=== PATIENT | female | born 1960 | race Caucasian/White ===

== ENCOUNTER 2019-01-09 16:00 | Observation (INO) | payer OTHER ==
[~2019-01-09] VITALS: Ht 175.3 cm; Wt 79.2 kg
--- NOTE | 2019-01-09 16:23 | PHYS DOC ---
Past History Past Medical History: Diabetes, High Cholesterol, Hypothyroid, Pneumonia, Stroke, Other Additional Past Medical Histor: goiter, neuropathy, orthostatic hypotension (JOSE NAZARIO DO) Past Surgical History: Other Additional Past Surgical Histo: left breast, left foot, right knee (ARAVIND,JOSE DO) Alcohol Use: None Drug Use: None (JOSE NAZARIO DO) Adult General Chief Complaint Chief Complaint: RIB PAIN [facility] HPI Patient is a 58-year-old female presents with chest pain in the lower chest that she reports has been present for the past year and a half. It has been worse over the past 5 days. She gets no relief with her current pain medicines to include Cymbalta. There is a respirophasic component. There has been no nausea or vomiting. No worsening with exertion. No recent travel. No fever or cough. She was seen at [facility] 2 days ago for hip pain. Given Toradol at that time. She reports it gave her a migraine yesterday.[] (JOSE NAZARIO DO) Review of Systems Review of Systems Constitutional: Denies fever or chills [] Eyes: Denies change in visual acuity, redness, or eye pain [] HENT: Denies nasal congestion or sore throat [] Respiratory: Denies cough or shortness of breath [] Cardiovascular: No additional information not addressed in HPI [] GI: Denies abdominal pain, nausea, vomiting, bloody stools or diarrhea [] : Denies dysuria or hematuria [] Musculoskeletal: Denies back pain or joint pain [] Integument: Denies rash or skin lesions [] Neurologic: Denies headache, focal weakness or sensory changes [] Endocrine: Denies polyuria or polydipsia [] All other systems were reviewed and found to be within normal limits, except as documented in this note. (JOSE NAZARIO DO) Physical Exam Physical Exam Constitutional: Well developed, well nourished, no acute distress, non-toxic appearance. [] HENT: Normocephalic, atraumatic, bilateral external ears normal, oropharynx moist, no oral exudates, nose normal. [] Eyes: PERRLA, EOMI, conjunctiva normal, no discharge. [] Neck: Normal range of motion, no tenderness, supple, no stridor. [] Cardiovascular:Heart rate regular rhythm, no murmur [] Lungs & Thorax: Bilateral breath sounds clear to auscultation, tenderness in the lower chest bilaterally. No crepitus, no flail segments. [] Abdomen: Bowel sounds normal, soft, no tenderness, no masses, no pulsatile masses. [] Skin: Warm, dry, no erythema, no rash. [] Back: No tenderness, no CVA tenderness. [] Extremities: No tenderness, no cyanosis, no clubbing, ROM intact, no edema. [] Neurologic: Alert and oriented X 3, normal motor function, normal sensory function, no focal deficits noted. [] Psychologic: Affect normal, judgement normal, mood normal. [] (JOSE NAZARIO DO) EKG EKG EKG shows a sinus rhythm at 84 bpm, left axis, QTC of 490 ms, no ST elevation. Interpreted by me at 1628.[] (JOSE NAZARIO DO) Radiology/Procedures Radiology/Procedures PROCEDURE: PORTABLE CHEST 1V Single AP view of the chest. Comparison: None. Indication: Chest pain Findings: The heart is enlarged. There is no pneumothorax or effusion. No air space or interstitial disease. Impression: 1. No acute cardiopulmonary process. 2. Cardiomegaly. [] (JOSE NAZARIO DO) Course & Med Decision Making Course & Med Decision Making Pertinent Labs and Imaging studies reviewed. (See chart for details) ED course: Patient arrived, was placed in bed, and tolerated exam well. She received ketorolac for her discomfort. After the determination of an elevated d- dimer, a VQ scan was ordered due to patient's reported allergy to IV contrast. That study is pending at the time of this dictation along with electrolytes. Patient care was endorsed to the nighttime physician at 1800. Medical decision making: There is no evidence of this being an acute coronary syndrome given the length of time of the symptoms and negative troponin. No evidence of dissecting thoracic aneurysm on chest x-ray. No evidence of esophageal rupture by history. No evidence of pneumothorax by imaging.[] (JOSE NAZARIO DO) Course & Med Decision Making The patient's pain has returned. We are still waiting on her VQ scan. They've given her 1 mg of Dilaudid IV. She has multiple allergies. I discussed options with the patient and she feels like being admitted might be best. She is nervous about going home and having her pain returned and the uncontrolled. I will admit her to the hospital. I spoke with Dr. De La Paz and he has agreed to admit the patient. (DARRIUS YOUNG DO) Dragon Disclaimer Dragon Disclaimer This electronic medical record was generated, in whole or in part, using a voice recognition dictation system. (JOSE NAZARIO DO) Departure Departure: Impression: Primary Impression: Chest pain Disposition: ADMITTED INPATIENT Admitting Physician: Asher De La Paz (DARRIUS YOUNG DO) Condition: STABLE Referrals: LARA GEORGE MD (PCP) JOSE NAZARIO DO Jan 09, 2019 16:23 DARRIUS YOUNG DO Jan 09, 2019 19:54
[2019-01-09] MEDS ORDERED: KETOROLAC 30 MG/ML VIAL. IVP ONE (16:30)
--- NOTE | 2019-01-09 16:47 | RAD ---
Single AP view of the chest. Comparison: None. Indication: Chest pain Findings: The heart is enlarged. There is no pneumothorax or effusion. No air space or interstitial disease. Impression: 1. No acute cardiopulmonary process. 2. Cardiomegaly. Electronically signed by: Phil Bartlett MD (01/09/2019 4:45 PM) [facility]
[2019-01-09 17:05] LABS: AMPHETAMINE/METHAMPHETAMINE NEG (NEG); BARBITURATES NEG (NEG); BENZODIAZEPINES NEG (NEG); CANNABINOIDS NEG (NEG); COCAINE NEG (NEG); METHADONE NEG (NEG); OPIATES NEG (NEG); PHENCYCLIDINE NEG (NEG)
[2019-01-09 17:10] LABS: CLARITY,URINE CLEAR; COLOR,URINE YELLOW
[2019-01-09 17:11] LABS: BACTERIA,URINE 0 /HPF (0-FEW); BILIRUBIN,URINE NEG (NEG); GLUCOSE,URINE >=1000 mg/dL (NEG); NITRITE,URINE NEG (NEG); SQUAMOUS EPITHELIAL CELL,UR MOD /LPF; UROBILINOGEN,URINE 0.2 mg/dL (0.2 mg/dL)
[2019-01-09 17:20] LABS: BASO % 0 % (0-3); EOS # 0.3 x10^3/uL (0.0-0.7); EOS % 4 % (0-3); HEMATOCRIT 33.2 % (36.0-47.0); HEMOGLOBIN 10.8 g/dL (12.0-15.5); LYMPH # 2.1 x10^3/uL (1.0-4.8); LYMPH % 28 % (24-48); MEAN CORPUSCULAR HEMOGLOBIN 27 pg (25-35); MEAN CORPUSCULAR HGB CONC 33 g/dL (31-37); MEAN CORPUSCULAR VOLUME 84 fL (79-100); MONO # 0.3 x10^3/uL (0.0-1.1); MONO % 5 % (0-9); NEUT # 4.7 x10^3uL (1.8-7.7); NEUT % 64 % (31-73); PLATELET COUNT 362 x10^3/uL (140-400); RED BLOOD COUNT 3.97 x10^6/uL (3.50-5.40); WHITE BLOOD COUNT 7.4 x10^3/uL (4.0-11.0)
[2019-01-09 17:43] LABS: ALBUMIN 3.1 g/dL (3.4-5.0); ALBUMIN/GLOBULIN RATIO 0.8 (1.0-1.7); CALCIUM 8.9 mg/dL (8.5-10.1); CREATININE 0.8 mg/dL (0.6-1.0); GFR 74.2; POTASSIUM 4.4 mmol/L (3.5-5.1); TOTAL BILIRUBIN 0.2 mg/dL (0.2-1.0); TOTAL PROTEIN 6.8 g/dL (6.4-8.2)
[2019-01-09] MEDS ORDERED: IV NORMAL SALINE 1,000ML 1,000 ML IV ONE (19:00)
[2019-01-09] MEDS ORDERED: HYDROmorphone PF 1 MG/ML DISP.SYRIN IV ONE (19:45)
[2019-01-09] MEDS ORDERED: NITROGLYCERIN SUBLINGUAL 0.4 MG BOTTLE OF 25. SL PRN (20:00)
[2019-01-09] MEDS ORDERED: ONDANSETRON PF 4 MG/2 ML VIAL. IV PRN (20:00)
[2019-01-09] MEDS ORDERED: ACETAMINOPHEN 325 MG TABLET PO PRN (20:00)
[2019-01-09 20:46] VITALS: BP 160/98
--- NOTE | 2019-01-09 21:09 | RAD ---
Study: NUCLEAR MEDICINE VENTILATION/PERFUSION SCAN History: Elevated d-dimer. Respirophasic lower chest pain. Comparison: None. Technique: Ventilation portion of the exam performed utilizing 8 mCi xenon-133 gas. Perfusion portion performed after intravenous administration of 5 mCi Technetium 99m MAA. Anterior and posterior planar perfusion and ventilation images were obtained. Findings: Ventilation images: Symmetric and confluence uptake of radiotracer during inspiration throughout both lungs. Progressive dissipation of radiotracer activity from equilibrium through washout without findings of air trapping.. Perfusion images: No perfusion defect. Confluent radiotracer throughout.. IMPRESSION: No mismatched defect to indicate pulmonary embolism. Low probability - essentially normal study. Electronically signed by: ERENDIRA HARRINGTON MD (01/09/2019 9:06 PM) [facility]
[2019-01-09] MEDS ORDERED: DICL100G28 TP (21:18)
[2019-01-09] MEDS ORDERED: INSU100I32 SQ (21:18)
[2019-01-09] MEDS ORDERED: INSU100I17 SQ (21:18)
[2019-01-09] MEDS ORDERED: AMIT50TA PO (21:18)
[2019-01-09] MEDS ORDERED: FLUD0.1T PO (21:18)
[2019-01-09] MEDS ORDERED: LOVA10TA PO (21:18)
[2019-01-09] MEDS ORDERED: MIDO10TA PO (21:18)
[2019-01-09] MEDS ORDERED: GABA300C8 PO (21:18)
[2019-01-09] MEDS ORDERED: LEVO100T5 PO (21:18)
[2019-01-09] MEDS ORDERED: DICLOFENAC SODIUM 1% TOPICAL GEL 100GM TUBE. TP PRN (21:45)
[2019-01-09] MEDS: GABAPENTIN 300 MG CAPSULE. PO SCH (22:42)
[2019-01-09] MEDS: AMITRIPTYLINE HCL 50 MG TABLET PO SCH (22:42)
[2019-01-09] MEDS: LEVOTHYROXINE 100 MCG TABLET PO SCH (22:42)
[2019-01-09 23:00] VITALS: BP 133/87
[2019-01-10] MEDS: HYDROmorphone PF 1 MG/ML DISP.SYRIN IV PRN ×4 (00:40→23:17)
[2019-01-10 06:05] VITALS: BP 94/59
[2019-01-10] MEDS: FLUDROCORTISONE 0.1 MG TABLET PO SCH (08:44)
[2019-01-10] MEDS: NOVOLOG SQ SCH ×3 (08:45→17:00)
[2019-01-10] MEDS: [UNRECOGNIZED DRUG - OTHER] SQ SCH (08:46)
[2019-01-10] MEDS: INSULIN GLARGINE SQ SCH (08:46)
[2019-01-10] MEDS ORDERED: INSULIN GLARGINE SYRINGE. SQ SCH (09:00)
[2019-01-10 10:51] VITALS: BP 96/64
--- NOTE | 2019-01-10 15:41 | HP ---
ADMIT DATE: 01/09/2019 HISTORY OF PRESENT ILLNESS: The patient is a 58-year-old female patient who came to the Emergency Room complaining of chest pain. She describes it in the lower chest on both sides as if it is a belt tightening and the pain radiates around both sides to her back, not associated with any nausea, no vomiting, no diaphoresis, no shortness of breath. The pain is constant. According to her, she had this pain for almost 6-12 months; however, it has been constant since last Sunday. She apparently was evaluated the [facility] 2 days ago for hip pain. Given Toradol at that time and she reported her migraine headache. In any case, she was evaluated in the Emergency Room and her EKG showed that she was in sinus rhythm at 84 beats per minute, left axis deviation, no ST segment elevation. Her chest x-ray showed the heart is enlarged; however, there is no pneumothorax or effusion. No airspace interstitial disease and was admitted for further evaluation and treatment. PAST MEDICAL HISTORY: Significant for type 2 diabetes, hyperlipidemia, cerebrovascular accident, fatty liver, hypothyroidism. She has also had an abscess in her right thigh and left breast. PAST SURGICAL HISTORY: Significant for thyroidectomy and drainage of an abscess on the right thigh, right knee and left breast. ALLERGIES: She is allergic to INFLUENZA VIRUS VACCINE, IODINATED CONTRAST MEDIA. AMOXICILLIN, ASPIRIN, CODEINE, DULOXETINE, IBUPROFEN, MORPHINE, PREGABALIN and RASPBERRY. MEDICATIONS: She is currently on following medications: She is on midodrine 20 mg 3 times a day, lovastatin 10 mg at bedtime, diclofenac sodium 1 gram applied twice a day. She is on gabapentin 600 mg at bedtime, amitriptyline 50 mg at bedtime, fludrocortisone 100 mcg once a day. She is on NovoLog insulin 5-10 units before meals and Lantus insulin 30 units at bedtime. She is on levothyroxine sodium 100 mcg at bedtime. FAMILY HISTORY: She has 2 sisters younger and healthy. Her father at age of 53 because of myocardial infarction. Mother is alive at age of 82 and has non-Hodgkin lymphoma. SOCIAL HISTORY: She is , has a stepdaughter. She never smoked, never drank alcohol. She is a [id number] mom. 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 REVIEW OF SYSTEMS: As per history of present illness. PHYSICAL EXAMINATION GENERAL: When I examined her, she looked well and was clearly in no apparent respiratory distress, pale, but no jaundice, cyanosis, or thyromegaly. No extension limb edema. VITAL SIGNS: Her heart rate was 86, blood pressure 157/102, temperature was 97.9, respiratory rate was 16, and oxygen saturation was 99% on room air. HEAD, EYES, EARS, NOSE AND THROAT: Showed normocephalic, atraumatic. NECK: Supple. HEART: Showed normal first and second heart sounds. No gallop, rub or murmur. CHEST: Clear to auscultation. No crepitation or rhonchi. ABDOMEN: Distended, soft, nontender. No guarding or rigidity. No organomegaly. All hernial orifice intact. Bowel sounds normal. NEUROLOGIC: She was awake, alert, responding appropriately. All cranial nerves intact. EXTREMITIES: She moves extremities without difficulty. She ambulates with a walker. LABORATORY DATA: On admission showed a serum sodium 140, potassium 4.4, chloride 100, bicarbonate 31, anion gap of 9, BUN 19, creatinine 0.8, estimated GFR was 74 and glucose was 199, calcium was 8.9. Total bilirubin, AST, ALT, alkaline phosphatase were normal. Total protein was 6.8, albumin was 3.1. Her TSH was extremely high at 91.486. Her first set of cardiac enzymes showed troponin to be less than 0.017. Her prothrombin time was 10.6, INR of 1, aPTT was 30. D-dimer was 1.88. Her urinalysis showed the urine was yellow, clear with a pH of 7, specific gravity 1.025. There is large amount of protein, a large amount of glucose. The urine was negative for ketones, small amount of blood, negative for nitrite and leukocyte esterase, 3-5 rbc's, 1-4 wbc's. Her toxic screen was essentially negative. ASSESSMENT AND PLAN: The patient was admitted to do 2 more sets of cardiac enzymes, although her chest pain is fairly atypical and is inconsistent with coronary artery disease. She did have a V/Q scan, which showed no perfusion defect and no mismatch defect to indicate pulmonary embolism, low probability for essentially a normal study. We will do 2 more sets of cardiac enzyme. We will consult the cardiology team. She stated that she has had CT scans and MRIs, but I do not see any one done at least in this facility. So in general this is a 58-year-old female patient with diabetes with multiple complications including diabetic peripheral neuropathy, probably also severe autonomic neuropathy with chronic hypertension for which she is on midodrine and fludrocortisone. She also has severe hypothyroidism with TSH that is extremely high and I am not sure whether she is re-taking her medication. She has also normochromic normocytic anemia. AMA LOWE MD DR: NANDA/mary JOB#: [id number] / [id number]
[2019-01-10 15:42] VITALS: BP 138/86
[2019-01-10 19:58] VITALS: BP 145/85
[2019-01-10] MEDS: GABAPENTIN 300 MG CAPSULE. PO SCH (21:23)
[2019-01-10] MEDS: AMITRIPTYLINE HCL 50 MG TABLET PO SCH (21:23)
[2019-01-10] MEDS: LEVOTHYROXINE 100 MCG TABLET PO SCH (21:23)
[2019-01-10 22:30] VITALS: BP 136/86
[2019-01-11] MEDS: HYDROmorphone PF 1 MG/ML DISP.SYRIN IV PRN ×5 (02:14→21:17)
[2019-01-11 02:16] VITALS: BP 130/80
[2019-01-11 05:27] VITALS: BP 104/68
[2019-01-11 07:45] LABS: BASO % 0 % (0-3); EOS # 0.3 x10^3/uL (0.0-0.7); EOS % 4 % (0-3); HEMATOCRIT 27.8 % (36.0-47.0); HEMOGLOBIN 9.1 g/dL (12.0-15.5); LYMPH % 30 % (24-48); MEAN CORPUSCULAR HEMOGLOBIN 27 pg (25-35); MEAN CORPUSCULAR HGB CONC 33 g/dL (31-37); MEAN CORPUSCULAR VOLUME 84 fL (79-100); MONO # 0.4 x10^3/uL (0.0-1.1); MONO % 5 % (0-9); NEUT # 4.1 x10^3uL (1.8-7.7); NEUT % 61 % (31-73); PLATELET COUNT 265 x10^3/uL (140-400); RED BLOOD COUNT 3.31 x10^6/uL (3.50-5.40); RED CELL DISTRIBUTION WIDTH 14.1 % (11.5-14.5); WHITE BLOOD COUNT 6.8 x10^3/uL (4.0-11.0)
[2019-01-11 07:59] LABS: ALBUMIN 2.3 g/dL (3.4-5.0); ALBUMIN/GLOBULIN RATIO 0.6 (1.0-1.7); CALCIUM 7.9 mg/dL (8.5-10.1); CREATININE 1.1 mg/dL (0.6-1.0); GFR 51.4; POTASSIUM 4.3 mmol/L (3.5-5.1); TOTAL BILIRUBIN 0.2 mg/dL (0.2-1.0); TOTAL PROTEIN 5.9 g/dL (6.4-8.2)
[2019-01-11] MEDS: FLUDROCORTISONE 0.1 MG TABLET PO SCH (09:52)
[2019-01-11] MEDS: NOVOLOG SQ SCH ×3 (09:52→16:48)
[2019-01-11] MEDS: [UNRECOGNIZED DRUG - OTHER] SQ SCH (09:53)
[2019-01-11] MEDS: INSULIN GLARGINE SQ SCH (09:53)
[2019-01-11 10:32] VITALS: BP 98/65
[2019-01-11] MEDS: IV 1/2 NORMAL SALINE 1,000 ML IV SCH (15:09)
--- NOTE | 2019-01-11 15:40 | PDOC ---
PROVIDER NOTE PROVIDER NOTE PROVIDER NOTE Reason for consultation: Epigastric pain Consultations physician:Dr. De La Paz History of present illness: Pleasant 58-year-old woman well-known to our service comes into the hospital in the setting of some epigastric discomfort and more abdominal pain rather than any cardiac pain. She has some pain with deep inspiration. Denies any specific chest pain with exertion. She has known multiple recurrent syncopal events likely related to autonomic dysfunction and was planned for a possible loop recorder insertion in the near future to rule out definitively any cardiac source of her arrhythmias. She reports that Naprosyn has given her some relief with her discomfort and currently feels little bit sleepy due to the Dilaudid given to her. She denies any dyspnea. No other acute issues at this time Past medical history: Includes diabetic neuropathy, dyslipidemia, dysphagia, long-term type 1 diabetes Gissel history of syncope and collapse Remote history of CVA Family history notable for diabetes Social history notable in that she has never smoked. Does not consume excessive alcohol. Denies any illicit drug use Allergies to multiple medications as noted in the chart Current cardiac medications include Midodrine, florinef. Review systems is negative unless otherwise mentioned above Physical examination The patient appeared well nourished and normally developed. Head exam is unremarkable. No scleral icterus or corneal arcus noted. Neck is without jugular venous distension, thyromegaly, or carotid bruits. Carotid upstrokes are brisk bilaterally. Lungs are clear to auscultation and percussion. Cardiac exam reveals the PMI to be normally sized and situated. Rhythm is regular. First and second heart sounds normal. No murmurs, rubs or gallops. Abdominal exam reveals normal bowel sounds, no masses, no organomegaly and no aortic enlargement. Extremities are nonedematous and both femoral and pedal pulses are normal. Msk: No traumua Neuro: No focal deficits Labs reviewed and no obvious abnormalities noted EKG is unremarkable Previous echocardiogram has been unremarkable Impression: 1. Musko skeletal chest pain 2. Previous history of syncope with plans for possible loop recorder placement o n an outpatient basis Recommendations: 1. At this present time no further cardiovascular testing necessary. Supportive care. Okay to discharge from a cardiac standpoint. ED DELCID MD Jan 11, 2019 15:40
[2019-01-11 16:13] VITALS: BP 131/81
[2019-01-11 19:57] VITALS: BP 106/76
[2019-01-11] MEDS: LEVOTHYROXINE 100 MCG TABLET PO SCH (21:16)
[2019-01-11] MEDS: AMITRIPTYLINE HCL 50 MG TABLET PO SCH (21:16)
[2019-01-11] MEDS: GABAPENTIN 300 MG CAPSULE. PO SCH (21:16)
[2019-01-12] MEDS: IV 1/2 NORMAL SALINE 1,000 ML IV SCH ×2 (02:34→11:00)
[2019-01-12 05:32] VITALS: BP 129/82
[2019-01-12 07:04] LABS: CALCIUM 8.3 mg/dL (8.5-10.1); CREATININE 0.9 mg/dL (0.6-1.0); GFR 64.8; POTASSIUM 4.4 mmol/L (3.5-5.1)
[2019-01-12] MEDS: FLUDROCORTISONE 0.1 MG TABLET PO SCH (08:16)
[2019-01-12] MEDS: INSULIN GLARGINE SQ SCH (08:19)
[2019-01-12] MEDS: [UNRECOGNIZED DRUG - OTHER] SQ SCH (08:19)
[2019-01-12] MEDS: NOVOLOG SQ SCH ×2 (08:23→12:18)
[2019-01-12] MEDS ORDERED: LEVO200T5 PO (12:42)
--- NOTE | 2019-01-12 13:39 | PN ---
DATE: SUBJECTIVE: The patient is resting slightly propped up in bed, in no apparent distress. She continued to complain of band like symptom and described it she has belt tightened around her mid epigastric area. However, she had 3 sets of cardiac enzymes that were negative. She did have a chest x-ray as well as her pulmonary ventilation perfusion scan was negative; however, for some reason, her creatinine has jumped from 0.8 to 1.1. She was also found to have extremely hypothyroid with a TSH of ____, although patient claims that she is taking her medication as prescribed and away from food. She is taking it actually at midnight to make sure that she ____ at least it is what is stated, however, the fact is the TSH is extremely high. PHYSICAL EXAMINATION: GENERAL: When I examined her this afternoon, she looked well and was clearly in no apparent respiratory distress, pale, but no jaundice, cyanosis, or thyromegaly. ____ edema. VITAL SIGNS: Her heart rate was 89, blood pressure was 98/65, temperature was 98.1, respiratory rate was 12, and oxygen saturation was 90% on room air. The rest of clinical examination is stable. Her intake over the last 24 hours was 1880. No output was recorded. LABORATORY DATA: Her lab work this morning showed her serum sodium is 138, potassium 4.3, chloride 102, bicarbonate 31, anion gap of 5, BUN 28, and creatinine 1.1. Her glucose was 195 and calcium was 7.9. Total bilirubin, AST, ALT, and alkaline phosphatase were normal. Total protein is 5.9 and albumin is 2.3. ASSESSMENT: 1. Chest pain, atypical, acute myocardial infarction is ruled out. 2. Type 2 diabetes mellitus, poorly controlled. 3. Hyperlipidemia. 4. Autonomic neuropathy. 5. Severe hypothyroidism. 6. She also has fatty liver and abscess in her right thigh and left breast that was incised and drained before. PLAN: My plan is to start her on IV fluid. We will check also her lab work tomorrow including T3, T4, and free T4 and hopefully discharge her home once her creatinine is back to baseline. AMA LOWE MD DR: NANDA/mary JOB#: [id number] / [id number]
[2019-01-12 23:07] LABS: T3 TOTAL <20 ng/dL (71-180)
--- NOTE | 2019-01-13 01:15 | DS ---
DATE OF DISCHARGE: 01/12/2019 HOSPITAL COURSE: The patient is a 58-year-old female patient, who was admitted with atypical chest pain. She had 3 sets of cardiac enzymes that ruled out myocardial infarction. She also developed acute kidney injury. Her creatinine has risen from 0.8 to 1.1, started on IV fluid and her creatinine is down, back to baseline and during the course of investigation, she was found also to have markedly elevated TSH and her free T4 was extremely low, confirming that she is extremely hypothyroid despite the fact that she is on 100 mcg of levothyroxine, and therefore, obviously she takes medication at bedtime 2 hours after her last meal as she was unable to take them early in the morning fasting as she goes to become hypoglycemic. The only other explantation is that she is not on adequate levothyroxine and I will discharge her probably to double the dose to 200 mcg and advised her to follow with her exchange specialist. PHYSICAL EXAMINATION: GENERAL: When I examined her this afternoon, she looked well and was clearly in no apparent respiratory distress, pale, no jaundice, cyanosis or thyromegaly. No jugular venous distention. No lower limb edema. VITAL SIGNS: Her heart rate was 69, blood pressure was 129/82, temperature was 98, respiratory rate was 18 and oxygen saturation was 93%. HEAD, EYES, EARS, NOSE AND THROAT: Showed normocephalic, atraumatic. NECK: Supple. HEART: Showed normal first and second heart sounds. No gallop or murmur. CHEST: Clear to auscultation. No crepitation or rhonchi. ABDOMEN: Distended, soft, nontender. No guarding or rigidity. No organomegaly. All hernial orifice intact. Bowel sounds normal. NEUROLOGIC: She is awake, alert, responding appropriately. All cranial nerves intact. She moves extremities without difficulty. Her intake over the last 24 hours was 1818, output was recorded. LABORATORY DATA: This morning showed a serum sodium 138, potassium 4.4, chloride 102, bicarbonate 32, anion gap of 4, BUN 32, creatinine was 0.9, estimated GFR was 64 mL per minute. Her glucose was 202, calcium was 8.3. Her free T4 was 0.33 ng/dL with normal range of 0.67-1.46. Her TSH is 91.486, normal range 0.358-3.740. DISCHARGE MEDICATIONS: She will be discharged home to continue on amitriptyline 50 mg at bedtime, diclofenac sodium 100 grams apply 1 gram topically twice a day, fludrocortisone acetate 100 mcg once a day, gabapentin 600 mg at bedtime. She is on NovoLog insulin 5-10 units subcutaneously before meals and Lantus insulin 30 units at bedtime, levothyroxine sodium 100 mcg once a day, lovastatin 10 mg at bedtime, and midodrine 20 mg 3 times a day. FINAL DISCHARGE DIAGNOSES: 1. Atypical chest pain, acute myocardial infarction was ruled out. 2. Type 2 diabetes mellitus, severe autonomic neuropathy requiring midodrine and fludrocortisone. 3. Profound hypothyroidism for which she is now on 100 mcg. She probably needs to double the dose to 200 mcg. Other medical problems include hyperlipidemia and diabetic peripheral neuropathy. AMA LOWE MD DR: NANDA/mary JOB#: [id number] / [id number]
--- NOTE | 2019-01-14 07:54 | EKG ---
[address] [address] Test Date: 2019-01-09 Test Time: 16:27:35 Pat Name: SAM SCHULTZ Department: Room: Gender: F [employer]: SATISH : 1960 Requested By: JOSE NAZARIO Order Number: [id number] Reading MD: Measurements Intervals [place] Rate: 84 P: 0 AR: 164 QRS: -28 QRSD: 88 T: 17 QT: 412 QTc: 490 Interpretive Statements SINUS RHYTHM LEFTWARD AXIS LOW LIMB LEAD VOLTAGE QRS(T) CONTOUR ABNORMALITY CONSISTENT WITH ANTEROSEPTAL INFARCT AGE UNDETERMINED CONSISTENT WITH INFERIOR INFARCT PROBABLY OLD ABNORMAL ECG RI6.01 No previous ECG available for comparison
== END 2019-01-12 13:39 | disposition home or self-care (01) ==
LOC: ER 16:00 → 1 SOUTH 19:50 → INTOOBSV 19:50 → ER 20:00
PROVIDERS: ADMIT Internal Medicine; ATTEND Internal Medicine
DX: R07.89 Other chest pain (principal); I25.10 Atherosclerotic heart disease of native coronary artery without angina pectoris; E11.43 Type 2 diabetes mellitus with diabetic autonomic (poly)neuropathy; D64.9 Anemia, unspecified; E78.5 Hyperlipidemia, unspecified; E03.9 Hypothyroidism, unspecified; K76.0 Fatty (change of) liver, not elsewhere classified; Z86.73 Personal history of transient ischemic attack (TIA), and cerebral infarction without residual deficits; Z98.890 Other specified postprocedural states; Z79.4 Long term (current) use of insulin
CPT/HCPCS: 36415; 71045; 78582; 80048; 80053; 80307; 81001; 82947; 83690; 83735; 84436; 84439; 84443; 84480; 84484; 85025; 85379; 85610; 85730; 93005; 96374; 96375; 96376; 97116; 97162; 99284; A9540; A9558; G0378; J1170; J1885; J7030; 96360; G0379; 99285-25

== ENCOUNTER 2019-01-21 14:14 | Emergency (ER) | payer OTHER ==
[~2019-01-21] VITALS: Ht 175.3 cm; Wt 78.9 kg
[~2019-01-21 14:14] MED LIST: AMIT50TA PO; DICL100G28 TP; FLUD0.1T PO; GABA300C8 PO; INSU100I17 SQ; INSU100I32 SQ; LEVO100T5 PO; LEVO200T5 PO; LOVA10TA PO; MIDO10TA PO
[2019-01-21] MEDS ORDERED: KETOROLAC 30 MG/ML VIAL. IVP ONE (14:30)
--- NOTE | 2019-01-21 14:32 | PHYS DOC ---
Past History Past Medical History: CVA, Diabetes, High Cholesterol, Hypothyroid, Pneumonia, Stroke, Other Additional Past Medical Histor: goiter, neuropathy, orthostatic hypotension Past Surgical History: Other Additional Past Surgical Histo: left breast, left foot, right knee Smoking: Non-smoker Alcohol Use: None Drug Use: None Adult General Chief Complaint Chief Complaint: CHEST PAIN [facility] HPI Patient is a 58-year-old female who presents to the emergency department for evaluation. She states that about an hour prior to arrival, she began experiencing some pressure and discomfort in her anterior chest, worse with deep breathing. She states that she felt "clammy" at home, but has not had any nausea, or vomiting. She denies any significant shortness of breath. She denies any prior cardiac history, but states that she has had a stroke in the past. There are no alleviating or exacerbating factors to the patient's symptoms except as noted above. The patient states that she did fall overnight, and injured her left hip, is complaining of pain in the area of her left hip. Range of motion in the hip is normal. Patient was admitted and hospitalized for chest pain about 2 weeks ago, and ruled out for acute myocardial infarction, notes from that recent hospital stay have been reviewed. Patient's HEART score is a 3, [id number] (assuming negative troponin). Review of Systems Review of Systems Constitutional: Denies fever or chills [] Eyes: Denies change in visual acuity, redness, or eye pain [] HENT: Denies nasal congestion or sore throat [] Respiratory: Denies cough or shortness of breath [] Cardiovascular: No additional information not addressed in HPI [] GI: Denies abdominal pain, nausea, vomiting, bloody stools or diarrhea [] : Denies dysuria or hematuria [] Musculoskeletal: Denies back pain or joint pain, other than the left hip. [] Integument: Denies rash or skin lesions [] Neurologic: Denies headache, focal weakness or sensory changes [] Endocrine: Denies polyuria or polydipsia [] All other systems were reviewed and found to be within normal limits, except as documented in this note. Allergies Allergies Allergies Coded Allergies Type Severity Reaction Last Updated Verified Influenza Virus Vaccines Allergy Unknown 01/09/19 Yes Iodinated Contrast Media Allergy Unknown Hives 01/09/19 Yes amoxicillin Allergy Unknown Diarrhea 01/09/19 Yes aspirin Allergy Unknown Anaphylaxis 01/09/19 Yes ibuprofen Allergy Unknown 01/09/19 Yes morphine Allergy Unknown 01/09/19 Yes pregabalin Allergy Unknown Nausea and Vomiting 01/09/19 Yes raspberry Allergy Unknown Rash 01/09/19 Yes codeine Adverse Reaction Unknown 01/09/19 Yes duloxetine Adverse Reaction Unknown 01/09/19 Yes simvastatin Adverse Reaction Unknown 01/09/19 Yes tramadol Adverse Reaction Unknown 01/09/19 Yes Physical Exam Physical Exam PHYSICAL EXAM: CONSTITUTIONAL: Well developed, well nourished HEAD: normocephalic, atraumatic EENT: PERRL, EOMI. Conjunctivae normal color, sclerae non-icteric; moist mucous membranes. NECK: Supple, non-tender; no meningismus. LUNGS: Lungs CTA, breathing even and unlabored. Normal air movement. HEART: Regular rate and rhythm, no murmur CHEST: No deformity; palpation in the anterior chest wall reproduces the patient's pain. ABDOMEN: The abdomen is soft, and non-tender, no masses or bruits. EXTREM: Normal ROM; no deformity, no calf tenderness. Normal pulses palpable in all extremities. There is no pedal edema. There is mild tenderness to palpation of the left hip with normal range of motion and no gross deformity. SKIN: No rash; no diaphoresis NEURO: Alert; normal speech and cognition; CN's grossly intact; strength grossly intact without focal deficit. BACK: No CVA TTP. Current Patient Data Vital Signs Vital Signs Date Time Temp Pulse Resp B/P (MAP) Pulse Ox O2 Delivery O2 Flow Rate FiO2 01/21/19 14:19 98.1 98 16 100 Room Air Lab Results Laboratory Tests Test 01/21/19 14:35 White Blood Count 6.9 x10^3/uL Red Blood Count 4.03 x10^6/uL Hemoglobin 10.9 g/dL Hematocrit 34.1 % Mean Corpuscular Volume 85 fL Mean Corpuscular Hemoglobin 27 pg Mean Corpuscular Hemoglobin Concent 32 g/dL Red Cell Distribution Width 14.6 % Platelet Count 210 x10^3/uL Neutrophils (%) (Auto) 62 % Lymphocytes (%) (Auto) 26 % Monocytes (%) (Auto) 7 % Eosinophils (%) (Auto) 4 % Basophils (%) (Auto) 1 % Neutrophils # (Auto) 4.2 x10^3uL Lymphocytes # (Auto) 1.8 x10^3/uL Monocytes # (Auto) 0.5 x10^3/uL Eosinophils # (Auto) 0.3 x10^3/uL Basophils # (Auto) 0.1 x10^3/uL Sodium Level 140 mmol/L Potassium Level 3.7 mmol/L Chloride Level 101 mmol/L Carbon Dioxide Level 29 mmol/L Anion Gap 10 Blood Urea Nitrogen 15 mg/dL Creatinine 0.6 mg/dL Estimated GFR (Cockcroft-Gault) 103.4 BUN/Creatinine Ratio 25 Glucose Level 245 mg/dL Calcium Level 9.0 mg/dL Total Bilirubin 0.3 mg/dL Aspartate Amino Transf (AST/SGOT) 23 U/L Alanine Aminotransferase (ALT/SGPT) 27 U/L Alkaline Phosphatase 162 U/L Troponin I Quantitative < 0.017 ng/mL XY-Ttq-[id number]-Type Natriuretic Peptide 261 pg/mL Total Protein 6.9 g/dL Albumin 3.2 g/dL Albumin/Globulin Ratio 0.9 Current Medications Medications (Trade) Dose Ordered Sig/Katlyn Route PRN Reason Start Time Stop Time Status Last Admin Dose Admin Ketorolac Tromethamine (Toradol 30mg Vial) 30 mg 1X ONCE IVP 01/21/19 14:30 01/21/19 14:38 DC 01/21/19 14:30 EKG EKG Normal sinus rhythm at a rate of 98 bpm, left axis deviation, normal intervals, poor anterior R-wave progression, nonspecific ST/T changes are present, the EKG is unchanged compared to patient's EKG from 01/09/19.[] Radiology/Procedures Radiology/Procedures PROCEDURE: CHEST PA & LATERAL PA and lateral views of the chest. Comparison: 01/09/2019. Indication: Chest pain Findings: The heart size is enlarged but stable. No pneumothorax or effusion. No air space or interstitial disease. The bony structures are intact. Impression: 1. No acute cardiopulmonary process. [] PROCEDURE: HIP LEFT 2 VIEW EXAM: Left hip, 2 views. HISTORY: Fall. COMPARISON: None. FINDINGS: 2 views of the left hip are obtained. There is marginal femoral head spurring. There is no fracture, dislocation or subluxation. IMPRESSION: Mild left hip osteoarthritis. Course & Med Decision Making Course & Med Decision Making Pertinent Labs and Imaging studies reviewed. (See chart for details) []3:30 PM: The patient's condition remains stable. She is feeling better at this time. Given her recent negative cardiac evaluation in the hospital, atypical pain, low risk stratification, and low clinical suspicion that her symptoms are cardiac in origin, she is safe to go home. I discussed importance of outpatient follow-up, use of NSAIDs, and return precautions in detail. Dragon Disclaimer Dragon Disclaimer This electronic medical record was generated, in whole or in part, using a voice recognition dictation system. Departure Departure: Impression: Primary Impression: Atypical chest pain Disposition: 01 HOME, SELF-CARE Condition: STABLE Referrals: LARA GEORGE MD (PCP) Patient Instructions: Chest Pain (Nonspecific), Chest Wall Pain Additional Instructions: Ibuprofen 400-600 mg every 6 hours may help improve your symptoms. Applying a heating pad to the affected area may help improve your symptoms. GONZÁLEZ WOOD MD Jan 21, 2019 14:32
[2019-01-21 14:53] LABS: BASO # 0.1 x10^3/uL (0.0-0.2); BASO % 1 % (0-3); EOS # 0.3 x10^3/uL (0.0-0.7); EOS % 4 % (0-3); HEMATOCRIT 34.1 % (36.0-47.0); HEMOGLOBIN 10.9 g/dL (12.0-15.5); LYMPH # 1.8 x10^3/uL (1.0-4.8); LYMPH % 26 % (24-48); MEAN CORPUSCULAR HEMOGLOBIN 27 pg (25-35); MEAN CORPUSCULAR HGB CONC 32 g/dL (31-37); MEAN CORPUSCULAR VOLUME 85 fL (79-100); MONO # 0.5 x10^3/uL (0.0-1.1); MONO % 7 % (0-9); NEUT # 4.2 x10^3uL (1.8-7.7); NEUT % 62 % (31-73); PLATELET COUNT 210 x10^3/uL (140-400); RED BLOOD COUNT 4.03 x10^6/uL (3.50-5.40); RED CELL DISTRIBUTION WIDTH 14.6 % (11.5-14.5); WHITE BLOOD COUNT 6.9 x10^3/uL (4.0-11.0)
--- NOTE | 2019-01-21 15:15 | RAD ---
EXAM: Left hip, 2 views. HISTORY: Fall. COMPARISON: None. FINDINGS: 2 views of the left hip are obtained. There is marginal femoral head spurring. There is no fracture, dislocation or subluxation. IMPRESSION: Mild left hip osteoarthritis. Electronically signed by: Renuka Baxter MD (01/21/2019 3:12 PM) [facility]
--- NOTE | 2019-01-21 15:15 | RAD ---
PA and lateral views of the chest. Comparison: 01/09/2019. Indication: Chest pain Findings: The heart size is enlarged but stable. No pneumothorax or effusion. No air space or interstitial disease. The bony structures are intact. Impression: 1. No acute cardiopulmonary process. Electronically signed by: Phil Bartlett MD (01/21/2019 3:12 PM) [facility]
[2019-01-21 15:18] LABS: ALBUMIN 3.2 g/dL (3.4-5.0); ALBUMIN/GLOBULIN RATIO 0.9 (1.0-1.7); CREATININE 0.6 mg/dL (0.6-1.0); GFR 103.4; POTASSIUM 3.7 mmol/L (3.5-5.1); TOTAL BILIRUBIN 0.3 mg/dL (0.2-1.0); TOTAL PROTEIN 6.9 g/dL (6.4-8.2)
[2019-01-21 15:39] VITALS: BP 178/87
--- NOTE | 2019-01-24 08:10 | EKG ---
[address] [address] Test Date: 2019-01-21 Test Time: 14:22:13 Pat Name: SAM SCHULTZ Department: Room: Gender: F Mender Hand: : 1960 Requested By: GONZÁLEZ WOOD Order Number: [id number] Reading MD: Measurements Intervals [place] Rate: 98 P: 66 UT: 182 QRS: -38 QRSD: 92 T: 53 QT: 394 QTc: 505 Interpretive Statements SINUS RHYTHM ABNORMAL LEFT AXIS DEVIATION LOW LIMB LEAD VOLTAGE LEFT ANTERIOR FASCICULAR BLOCK QRS(T) CONTOUR ABNORMALITY CONSISTENT WITH ANTEROSEPTAL INFARCT PROBABLY OLD ABNORMAL ECG RI6.01 No previous ECG available for comparison
== END 2019-01-21 15:37 | disposition home or self-care (01) ==
LOC: ER 14:14
DX: R07.89 Other chest pain (principal); M25.552 Pain in left hip; E78.00 Pure hypercholesterolemia, unspecified; E03.9 Hypothyroidism, unspecified; Z86.73 Personal history of transient ischemic attack (TIA), and cerebral infarction without residual deficits; E11.40 Type 2 diabetes mellitus with diabetic neuropathy, unspecified; Z88.6 Allergy status to analgesic agent; Z88.1 Allergy status to other antibiotic agents; Z91.041 Radiographic dye allergy status; Z88.5 Allergy status to narcotic agent; Z88.7 Allergy status to serum and vaccine; Z88.8 Allergy status to other drugs, medicaments and biological substances; Z91.018 Allergy to other foods; W18.39XA Other fall on same level, initial encounter; Y93.89 Activity, other specified; Y92.89 Other specified places as the place of occurrence of the external cause; Y99.8 Other external cause status
CPT/HCPCS: 36415; 71046; 73502; 80053; 83880; 84484; 85025; 93005; 96374; 99285; J1885